=== PATIENT | female | born 1975 | race Caucasian/White ===

== ENCOUNTER → 2024-01-16 19:58 | Outpatient (REF) | payer OTHER, SELFPAY | LOC: MRI 3T 19:58 | PROVIDERS: ATTENDING PHYSICIAN Physical Medicine & Rehabilitation; FAMILY PHYSICIAN Family Medicine | DX: M65.252 Calcific tendinitis, left thigh (principal) | CPT/HCPCS: 73721 ==

== ENCOUNTER → 2024-10-01 12:17 | Outpatient (REF) | payer OTHER, SELFPAY | LOC: WDC 12:17 | PROVIDERS: ATTENDING PHYSICIAN Nurse Practitioner Adult Health; FAMILY PHYSICIAN Family Medicine | DX: Z12.31 Encounter for screening mammogram for malignant neoplasm of breast (principal) | CPT/HCPCS: 77063; 77067 ==